=== PATIENT | female | born 1950 | race Caucasian/White ===

== ENCOUNTER 2016-09-19 15:34 | Emergency (ER) | payer MEDICAID ==
[~2016-09-19] VITALS: Ht 157.5 cm; Wt 64.0 kg
[~2016-09-19 15:34] MED LIST: BACTDS PO; BEN25 PO; CEPH-443 PO
[2016-09-19 15:38] VITALS: Ht 157.5 cm; Wt 64.0 kg
[2016-09-19] MEDS ORDERED: ASPIRIN 325 MG TAB PO STA (19:14)
[2016-09-19 19:38] LABS: ADD SCAN DIFF NO
[2016-09-19 19:40] LABS: BASOPHILS % 0.4 % (0.0-2.0); EOSINOPHILS # 0.2 10^3/ul (0.0-0.5); EOSINOPHILS % 1.6 % (0.0-7.0); HEMATOCRIT 38.7 % (37.0-47.0); HEMOGLOBIN 12.8 g/dl (12.0-16.0); LYMPHOCYTES # 4.5 10^3/ul (0.8-2.9); LYMPHOCYTES % 47.1 % (15.0-51.0); MEAN CORPUSCULAR HEMOGLOBIN 28.9 pg (29.0-33.0); MEAN CORPUSCULAR HGB CONC 33.1 g/dl (32.0-37.0); MEAN CORPUSCULAR VOLUME 87.4 fl (82.0-101.0); MEAN PLATELET VOLUME 10.8 fl (7.4-10.4); MONOCYTE # 0.6 10^3/ul (0.3-0.9); MONOCYTES % 6.4 % (0.0-11.0); NEUTROPHIL # 4.2 10^3/ul (1.6-7.5); NEUTROPHILS % 44.3 % (39.0-77.0); PLATELET COUNT 370 10^3/UL (140-415); RED BLOOD COUNT 4.43 10^6/ul (4.20-5.40); WHITE BLOOD COUNT 9.6 10^3/ul (4.8-10.8)
[2016-09-19 19:59] LABS: INR 0.91; PROTIME 12.2 Sec (12.2-14.2)
[2016-09-19 20:00] LABS: PARTIAL THROMBOPLASTIN TIME 25.8 Sec (25.0-35.0)
--- NOTE | 2016-09-19 20:01 | RADRPT ---
PROCEDURE: Chest x-ray CLINICAL INDICATION: Chest pain TECHNIQUE: Chest single view COMPARISON: None FINDINGS: The heart is normal in size. The pulmonary vessels are normal in caliber. There is moderate athero sclerotic aortic calcification. Lung volumes are low. No confluent pneumonia seen. Costophrenic a ngles are sharp. Bony thorax is unremarkable. IMPRESSION: No acute cardiopulmonary disease. Atherosclerotic aortic calcification Low lung volumes RPTAT: HH .Derrek Waterman MD, Date Time Electronically viewed and signed by .Derrek Waterman MD, on 09/19/2016 20:01 .W/
[2016-09-19 20:17] LABS: ANION GAP 15 (8-16); BLOOD UREA NITROGEN 14 mg/dl (7-20); CALCIUM 9.3 mg/dl (8.4-10.2); CARBON DIOXIDE 28 mmol/L (21-31); CHLORIDE 102 mmol/L (97-110); CREATININE 0.55 mg/dl (0.44-1.00); GLUCOSE 304 mg/dl (70-220); POTASSIUM 3.9 mmol/L (3.5-5.1); SODIUM 141 mmol/L (135-144)
[2016-09-19] MEDS ORDERED: SOD CHLORIDE 0.9% 1,000 ML IV ONE (20:30)
[2016-09-19 20:31] LABS: TROPONIN-I < 0.012 ng/ml (0.00-0.12)
[2016-09-19 20:51] LABS: B-TYPE NATRIURETIC PEPTIDE 60 PG/ML (0-125)
[2016-09-19] MEDS ORDERED: RANI150T9 PO (20:51)
[2016-09-19] MEDS ORDERED: NAPR-688 PO (20:51)
[2016-09-19 21:38] VITALS: BP 156/80; PULSE 56; RESP 16; TEMP 98.9
--- NOTE | 2016-09-21 16:33 | ERD ---
DATE OF SERVICE: 09/19/2016 HISTORY OF PRESENT ILLNESS: This 66-year-old female who was sent in by her primary care doctor for chest pain that has been going on for 2 days in her mid and left chest. It is described as an ache that is made worse by certain trunk movements and by palpation. She has no known trauma to the area . She has no associated shortness of breath or nausea. REVIEW OF SYSTEMS: A 10-point review of systems negative except as in the HPI. PAST MEDICAL HISTORY: Hypertension, diabetes, hypercholesterolemia. PAST SURGICAL HISTORY: Appendectomy. FAMILY HISTORY: Noncontributory. SOCIAL HISTORY: Denies tobacco, alcohol or other drugs. Lives with family. PHYSICAL EXAMINATION VITAL SIGNS: Pulse 69, blood pressure 119/58, respirations 20, oxygen saturation 96% on room air. GENERAL: No acute distress. HEENT: Normocephalic, atraumatic. NECK: Supple, no JVD. LUNGS: Clear to auscultation bilaterally. CARDIAC: Regular rate and rhythm. No murmurs. ABDOMEN: Soft, nontender, nondistended, no masses. Chest wall tenderness to palpation over the left costochondral junction on the sternum. No lesions seen. SKIN: No rashes or other lesions. NEUROLOGIC: Alert and oriented x3, no focal deficits. PSYCHIATRIC: Appears, no anxiety or depression noted. DIAGNOSTIC DATA: EKG interpretation: Normal sinus rhythm, rate of 82, normal axis, no ST or T-wave changes concerning for acute ischemia, normal intervals. Q-waves in the inferior leads. Otherwise , normal EKG. monitor tech interpretation: Normal sinus rhythm without arrhythmia. Chest x-ray interpretation: I see no acute process. I see no widened mediastinum, no pneumothorax, no infiltrates. No pulmonary edema, no fractures. LABORATORY DATA: CBC is within normal limits with no anemia or elevated white count. BMP is signif icant only for a glucose of 304. Troponin is negative. BNP is normal at 60. Coagulation studies a re normal with an INR of 0.91. EMERGENCY DEPARTMENT COURSE AND MEDICAL DECISION MAKING: A 66-year-old female with no signs of car diac ischemia to explain her atypical chest pain which does fit the pattern of costochondritis. Als o had diabetic hyperglycemia and was given 1 liter of normal saline in the emergency room. She had also been given aspirin for her chest pain. Her chest pain with just the aspirin alone had subsided to nothing while in the emergency room. She was asymptomatic. I am discharging her with naproxen as well as Zantac and instructions to follow up with her primary care doctor and perhaps obtain an e chocardiogram. DISCHARGE DIAGNOSES: 1. Atypical chest pain. 2. Costochondritis. 3. Diabetic hyperglycemia. DISPOSITION: Home in stable condition. Dictated By: DAPHNEY DIALLO Conf#: [id number] DID#: [id number]
== END 2016-09-19 21:41 | disposition home or self-care (01) ==
LOC: E/R 15:34
DX: R07.89 Other chest pain (principal); M94.0 Chondrocostal junction syndrome [Tietze]; E11.65 Type 2 diabetes mellitus with hyperglycemia; I10 Essential (primary) hypertension
CPT/HCPCS: 71010; 80048; 83880; 84484; 85025; 85610; 85730; J7030; Z7610; 36415; 93005